=== PATIENT | male | born 1970 | race Caucasian/White ===

== ENCOUNTER → 2023-04-16 13:19 | Outpatient (CLI) | payer OTHER, SELFPAY ==
[2023-04-16 14:51] LABS: Add Manual Diff / Slide Review NO; Basophils Absolute Auto 100 /uL (0-100); Basophils Percent Auto 0.6 % (0-2); Eosinophils Absolute Auto 100 /uL (0-450); Hematocrit 44.8 % (41-53); Hemoglobin 15.4 g/dL (13.5-17.5); Lymphocytes Absolute Auto 2500 /uL (1100-4500); Lymphocytes Percent Auto 28.4 % (25-40); Mean Corpuscular HGB Conc 34.3 % (30-36); Mean Corpuscular Hemoglobin 34.1 PG (26-34); Mean Corpuscular Volume 99.4 fL (80-100); Monocytes Absolute Auto 600 /uL (0-900); Monocytes Percent Auto 6.6 % (3-14); Neutrophils Absolute Auto 5500 /uL (1500-7000); Neutrophils Percent Auto 63.4 % (50-75); Platelet Count 241 X10^3/uL (150-400); Red Cell Distribution Width 13.7 % (11.6-14.8); White Blood Cell Count 8.7 X10^3/uL (4.5-11.0)
[2023-04-16 15:57] LABS: Alanine Aminotransferase 22 IU/L (<50); Albumin Globulin Ratio 1.3 (1.0-2.8); Alkaline Phosphatase 58 U/L (38-126); Aspartate Aminotransferase 24 IU/L (17-59); BUN Creatinine Ratio 15.7 (6-22); Bilirubin Total 0.5 mg/dL (0.2-1.3); Blood Urea Nitrogen 13 mg/dL (9-20); Calcium 8.9 mg/dL (8.4-10.2); Carbon Dioxide 29 mmol/L (22-32); Chloride 109 mmol/L (98-107); Cholesterol 183 mg/dL (140-199); Estimated Glomerular Filt Rate > 60 mL/min (>60); Glucose 89 mg/dL (70-100); HDL Cholesterol 34 mg/dL (40-60); HEMOLYSIS < 15 (0-50); LDL Cholesterol Calculated 120 mg/dL (<100); Potassium 4.3 mmol/L (3.4-5.1); Sodium 142 mmol/L (137-145); Triglycerides 143 mg/dL (35-150)
[2023-04-16 16:50] LABS: HIV 1 & 2 Ab/Ag 4th Gen Combo NEGATIVE (NEGATIVE); Hep C Virus Ab w/Reflex Quant NEGATIVE s/c (NEGATIVE)
== END ==
PROVIDERS: PCP Family Medicine; Referring Provider Family Medicine; Visit Provider Family Medicine
DX: E87.8 Other disorders of electrolyte and fluid balance, not elsewhere classified (principal); Z13.9 Encounter for screening, unspecified; Z13.220 Encounter for screening for lipoid disorders; Z11.4 Encounter for screening for human immunodeficiency virus [HIV]; Z11.59 Encounter for screening for other viral diseases; Z13.0 Encounter for screening for diseases of the blood and blood-forming organs and certain disorders involving the immune mechanism
CPT/HCPCS: 36415; 80053; 80061; 85025; 86803; 87389

== ENCOUNTER 2023-05-06 09:57 | Day surgery (SDC) | payer OTHER, SELFPAY ==
[2023-05-04 12:35] VITALS: BMI 28.2
[2023-05-06] VITALS (11 sets, daily range): BP systolic 108–138; BP diastolic 62–78; PULSE 50–77; RESP 12–20; TEMP 36.3–36.7; O2SAT 93–100; BMI 26.4
[2023-05-06] MEDS: LACTATED RINGERS 1,000 ML 21 ML IV ×2 (11:09→13:14)
--- NOTE | 2023-05-06 11:28 | PM.PREOP ---
Pre-operative Note Interval Note History & Physical reviewed/Exam performed by Physician: Yes Changes to H&P: No
[2023-05-06] MEDS: CEFAZOLIN 2 GM/100 ML PREMIX 100 ML IV (12:06)
--- NOTE | 2023-05-06 12:20 | SUR.OPER ---
Supine on padded OR bed, head on pillow, bilateral arms padded and tucked at patients side, legs uncrossed, safety belt at thigh, tape over blanket over lower legs.
[2023-05-06] MEDS: BUPIVACAINE 0.25% (PF) VIAL 30 ML INJ (12:27)
--- NOTE | 2023-05-06 13:38 | PM.OP.1 ---
Operative Date/Time/Diagnoses Date of procedure: 05/06/23 Time of procedure: 13:38 Pre-op diagnosis: left inguinal hernia Post-op diagnosis: same Procedure & Clinicians Procedure: Laparoscopic repair of left inguinal hernia Same procedure as scheduled: Yes Indications: Symptomatic reducible left inguinal hernia Surgeon: Darian Torres Housekeeping Cleaner: He Franklin Anesthesia Type: General Operative Notes Findings: Large indirect defect containing sigmoid colon. No direct floor defect Specimen(s): none sent Estimated Blood Loss (mL): 100 Procedure in detail: The patient was brought to the operating room and placed supine on the table. Bilateral sequential compression devices were applied. General anesthesia was induced and they were intubated with an endotracheal tube. A zepeda cath was placed in sterile fashion. They received Ancef prior to skin incision. They were prepped and draped in sterile fashion. A time out was performed to ensure the correct patient, procedure and necessary equipment within the operating room. The skin was infiltrated with 0.25% bupivicaine. A 1 cm supra umbilical midline incision was made. The fascia was sharply incised and the abdomen entered traumatically. A 10mm balloon port was placed and pneumoperitoneum was established at 15mm Hg. Inspection of the abdomen demonstrated no evidence of injury upon entry. Two 5 mm ports were then placed under direct visualization in the right and left lower quadrant lateral to the rectus muscle. Previous right-sided repair was observed appeared to be in good order. On the left the sigmoid colon was within the indirect defect. Colon was reduced out of the defect. Starting on the left side the peritoneum 4 cm superior to the deep inguinal ring between the medial umbilical ligament and the anterior superior iliac spine was incised. The medial preperitoneal dissection was carried out into the space of Retzius bluntly, the bladder was swept inferiorly, the pubis and Andrzej's ligament were identified. Next attention was turned towards the lateral aspect of the peritoneal flap. The preperitoneal fat with the testicular vessels was carefully dissected off the inferior peritoneal flap. The cord was examined demonstrating a large redundant indirect sac which was skeltonized off the cord preserving the testicular vessels and the vas deferns. A large Bard 3D Max mesh was then placed into the abdomen and positioned such that the myopectineal orifice was completely covered with good overlap on all sides. The peritoneal flap was then repositioned back to its original position and a running V lock suture was used to close the peritoneum such that no bowel could herniate into the preperitoneal space. The area was examined for hemostasis. The 5mm trocars were removed under direct visualization and pneumoperitoneum was deflated through the umbilical trocar, The fascia at the umbilicus was closed with 0-Vicryl in figure of 8 fashion, skin closed with 4-0 Monocyl followed by Dermabond. The sponge and instrument count at the end of the case was correct. Both testicles were entirely within the scrotum at the end of the case. The patient emerged from anesthsia was extubated and transferred to recovery in stable condition. Complications: none Post-operative Condition: stable Disposition: same day surgery
[2023-05-06] MEDS: MEPERIDINE 50 MG/ML INJ 25 MG IV (14:02)
[2023-05-06] MEDS: ONDANSETRON 4 MG/2 ML INJ IV (14:03)
[2023-05-06] MEDS: OXYCODONE IR 5 MG TABLET PO ×2 (14:03→14:31)
[2023-05-06] MEDS: hydrOXYzine 50 MG/ML INJ 25 MG IM (14:05)
[2023-05-06] MEDS: ACETAMINOPHEN 325 MG TABLET 975 MG PO (14:21)
[2023-05-06] MEDS: fentaNYL 100 MCG/2 ML INJ IV (14:25)
--- NOTE | 2023-05-06 15:20 | SUR.PHASEI ---
Informed Dr Torres of scrotal swelling. No new orders.
== END 2023-05-06 15:17 | disposition home or self-care (01) ==
PROVIDERS: PCP Family Medicine; Referring Provider Surgery; Visit Provider Surgery
PROC: 0YQ64ZZ Repair Left Inguinal Region, Percutaneous Endoscopic Approach (ICD-10-PCS; CPT 49650; principal; 2023-05-06 11:45)
DX: K40.90 Unilateral inguinal hernia, without obstruction or gangrene, not specified as recurrent (principal)
CPT/HCPCS: 49650; 82962; J0330; J0690; J1885; J2175; J2250; J2405; J2704; J3010; J3410

== ENCOUNTER → 2023-05-13 14:55 | Outpatient (CLI) | payer OTHER, SELFPAY ==
[2023-05-13 15:23] LABS: Appearance Urine UA CLEAR; Bilirubin Urine UA 1+ (NEGATIVE); Color Urine UA YELLOW; Glucose Urine UA NEGATIVE (Negative); Ketones Urine UA 2+ (NEGATIVE); Leukocyte Esterase Urine UA NEGATIVE (NEGATIVE); Nitrite Urine UA NEGATIVE (Negative); Occult Blood Urine UA NEGATIVE (Negative); Protein Urine UA NEGATIVE (Negative); Specific Gravity Urine UA 1.025 (1.000-1.035); pH Urine UA 5.5 (4.5-8.0)
[2023-05-13 15:29] LABS: Ictotest Urine Negative (Negative)
[2023-05-13 15:30] LABS: Bacteria Urine Occasional (0-1); Culture Indicated Urine Cult Not Indicated; Mucus Urine 1+ (Negative); RBC Urine 0-1/HPF (0-5/HPF); Squamous Epithelial Cell Urine 0-1 /HPF (0-5/HPF); Urine Volume 10mL (spun); WBC Urine 0-1/HPF (0-5/HPF)
== END ==
PROVIDERS: PCP Family Medicine; Referring Provider Surgery; Visit Provider Surgery
DX: N99.89 Other postprocedural complications and disorders of genitourinary system (principal)
CPT/HCPCS: 81001

== ENCOUNTER 2023-06-16 06:42 | Day surgery (SDC) | payer OTHER, SELFPAY ==
[2023-06-16 07:10] VITALS: BP 105/62; PULSE 60; RESP 16; TEMP 36.6; O2SAT 98
[2023-06-16] MEDS: LACTATED RINGERS 1,000 ML 42 ML IV (07:20)
--- NOTE | 2023-06-16 07:46 | PM.HP.1 ---
History of Present Illness History of Present Illness Date Patient Seen: 06/16/23 Time Patient Seen: 07:46 Chief complaint: Screening Colonoscopy Narrative: 52-year-old male here for screening colonoscopy 1st time. No family history of intestinal malignancy. Occasional left-sided lower abdominal pain. [facility] Medical History Elevated cholesterol Decreased hearing Surgical History Anesthesia History of hernia repair (~1998) S/P right rotator cuff repair (~1996) Social History marital status: household members: spouse lives independently: Yes occupational status: employed Smoking Status: Current every day smoker Tobacco: How many years used: 38 alcohol intake: current substance use type: does not use Meds Home Medications and Allergies Home Medications Medication Instructions Recorded Confirmed Type bupropion HCl 150 mg tablet,12 hr 150 mg PO BID #60 ea 05/07/23 05/21/23 Rx sustained-release peg 3350-electrolytes 236 240 ml PO Q10M #4,000 mL 06/05/23 Rx gram-22.74 gram-6.74 gram-5.86 gram solution (Golytely) Allergies Allergy/AdvReac Type Severity Reaction Status Date / Time No Known Drug Allergies Allergy Verified 05/21/23 14:42 Exam Vital Signs (past 8 hours): - 06/16/23 07:10 Temperature 97.8 F Pulse Rate 60 Respiratory Rate 16 Blood Pressure 105/62 Pulse Oximetry 98 Oxygen Delivery Method Room Air Oxygen Delivery Method Room Air Narrative Exam Narrative: General adult man alert oriented no acute distress Chest nonlabored respiration Extremities warm well perfused Assessment & Plan Assessment & Plan narrative: The patient requires colorectal screening and colonoscopy is recommended. Technical details were discussed. Risks, benefits, alternatives explained. Risks including but not limited to myocardial infarction, aspiration, bleeding, pain, missed lesion, incomplete examination, need for further radiographic studies, intestinal injury, and need for major abdominal surgery were discussed. All questions were answered to their satisfaction, and they are in agreement with this plan.
--- NOTE | 2023-06-16 07:47 | PM.OP.COLON ---
Operative Date/Time/Diagnoses Date of procedure: 06/16/23 Time of procedure: 08:01 Pre-op diagnosis: Colorectal screening Procedure & Clinicians Study performed: Aborted colonoscopy Indications: 52-year-old male here for 1st time screening colonoscopy Surgeon: Darian Torres Procedure Notes Procedure in detail: The history and physical was performed/updated and the patient is ASA class is 2. The procedure was discussed in detail with the patient. Potential risks complications including infection, bleeding, missed diagnosis, perforation, need for surgery, and were explained. Their questions were answered and informed consent was obtained. Patient was brought to the procedure room and placed standard monitoring equipment. The patient's vital signs were monitored continuously throughout the entire procedure. Prior to starting time-out was performed. The patient was placed in the left lateral recumbent position. Procedural sedation was administered by anesthesia. Examination began with a thorough inspection of the perianal area there was no evidence of fissures, fistulae, external hemorrhoids or cutaneous malignancy. The colonoscopy scope was then placed into the anal canal and was advanced forward. Despite copious irrigation the quality of the prep remained quite poor and inadequate for safe and accurate performance of the exam. The procedure was aborted. Impression: Aborted colonoscopy Post-procedure Plan for aftercare: Re-attempt colonoscopy with alternative prep.
[2023-06-16 08:02] VITALS: BP 94/69; PULSE 72; RESP 12; TEMP 36.5; O2SAT 97
[2023-06-16 08:07] VITALS: BP 100/67; PULSE 69; RESP 14; O2SAT 96
[2023-06-16 08:12] VITALS: BP 109/71; PULSE 58; RESP 16; O2SAT 99
[2023-06-16 08:17] VITALS: BP 93/64; PULSE 67; RESP 16; TEMP 36.1; O2SAT 98
[2023-06-16 08:33] VITALS: BP 95/63; PULSE 55; RESP 16; O2SAT 99
--- NOTE | 2023-06-16 08:35 | SUR.PHASEII ---
Pt states he is ready to go home. Pt states he understands discharge instructions. Pt to be discharged with his .
== END 2023-06-16 08:38 | disposition home or self-care (01) ==
PROVIDERS: PCP Family Medicine; Referring Provider Surgery; Visit Provider Surgery
PROC: 0DJD8ZZ Inspection of Lower Intestinal Tract, Via Natural or Artificial Opening Endoscopic (ICD-10-PCS; CPT 45378; principal; 2023-06-16 07:45)
DX: Z12.11 Encounter for screening for malignant neoplasm of colon (principal); Z53.09 Procedure and treatment not carried out because of other contraindication
CPT/HCPCS: 45378; J2704

== ENCOUNTER → 2024-11-29 10:10 | Outpatient (CLI) | payer OTHER, SELFPAY ==
[2024-11-29 10:54] LABS: Hematocrit 44.8 % (41-53); Hemoglobin 15.4 g/dL (13.5-17.5); Mean Corpuscular HGB Conc 34.4 % (30-36); Mean Corpuscular Hemoglobin 33.8 PG (26-34); Mean Corpuscular Volume 98.3 fL (80-100); Platelet Count 297 X10^3/uL (150-400)
[2024-11-29 12:23] LABS: Alanine Aminotransferase 19 IU/L (<50); Albumin 4.3 g/dL (3.5-5.0); Albumin Globulin Ratio 1.4 (1.0-2.8); Alkaline Phosphatase 59 U/L (38-126); Blood Urea Nitrogen 11 mg/dL (9-20); Calcium 9.1 mg/dL (8.4-10.2); Carbon Dioxide 25 mmol/L (22-32); Chloride 106 mmol/L (98-107); Cholesterol 201 mg/dL (140-199); Estimated Glomerular Filt Rate > 60 mL/min (>60); Globulin 3.0 g/dL (1.7-4.1); Glucose 101 mg/dL (70-99); HDL Cholesterol 43 mg/dL (40-60); HEMOLYSIS 23 (0-50); Potassium 4.3 mmol/L (3.4-5.1); Sodium 139 mmol/L (137-145); Total Protein 7.3 g/dL (6.3-8.2); Triglycerides 96 mg/dL (35-150)
[2024-11-29 12:48] LABS: TSH w/ Reflex to FT4 1.58 uIU/mL (0.47-4.68)
[2024-11-29 12:55] LABS: Hemoglobin A1C% w Est Avg Glu 5.7 % (4.0-6.0)
== END ==
PROVIDERS: PCP Family Medicine; Referring Provider Family Medicine; Visit Provider Family Medicine
DX: E78.5 Hyperlipidemia, unspecified (principal); F17.200 Nicotine dependence, unspecified, uncomplicated; Z79.899 Other long term (current) drug therapy; Z13.1 Encounter for screening for diabetes mellitus; Z12.5 Encounter for screening for malignant neoplasm of prostate; Z13.29 Encounter for screening for other suspected endocrine disorder
CPT/HCPCS: 36415; 80053; 80061; 83036; 84443; 85027; G0103

== ENCOUNTER → 2024-12-16 14:51 | Outpatient (CLI) | payer OTHER, SELFPAY ==
--- NOTE | 2024-12-16 14:52 | DI.CT.S_ITS ---
PROCEDURE: CT LUNG LOW DOSE SCREENING
== END ==
LOC: CT 14:52
PROVIDERS: PCP Family Medicine; Referring Provider Family Medicine; Visit Provider Family Medicine
DX: Z12.2 Encounter for screening for malignant neoplasm of respiratory organs (principal); F17.210 Nicotine dependence, cigarettes, uncomplicated; I25.10 Atherosclerotic heart disease of native coronary artery without angina pectoris
CPT/HCPCS: 71271

== ENCOUNTER 2025-01-30 11:45 | Day surgery (SDC) | payer OTHER, SELFPAY ==
[2025-01-25 08:35] VITALS: BMI 27.8
--- NOTE | 2025-01-30 | PATH_ITS ---
[facility] Accession Number: [id number] No. of containers..02 Tissue . 01 Material submitted: . PART A: colon - CECUM POLYP PART B: colon - SIGMOID POLYP . 01 Diagnosis: Part A: CECUM POLYP: Colonic mucosa with benign lymphoid aggregate. No neoplasm identified. . Specimen Comments: Additional step sections were examined. . Part B: SIGMOID POLYP: Hyperplastic polyp. [facility] 02/06/2025 1205 Local . 01 Electronically signed: . Jcaob Cason MD, Pathologist NPI- [id number] . 01 Gross description: . A. Received in formalin with two patient identifiers, and cecum polyp is one, 0.3 cm fam tissue fragment, entirely submitted in A1. . B. Received in formalin with two patient identifiers, and sigmoid polyp per clinician, are two 0.5-0.6 cm fam tissue fragments, entirely submitted in B1. ([id number]) /MRV 02/06/2025 1205 Local . 01 Pathologist provided ICD-10: K63.5, K63.89 . 01 CPT . 586097, [id number] Specimen Comment: A courtesy copy of this report has been sent to [phone] Performed at: [address] [id number] MD Jacob Cason MD Phone: [phone]
[2025-01-30 12:33] VITALS: BP 114/75; PULSE 59; RESP 18; TEMP 36.2; O2SAT 95
[2025-01-30] MEDS: LACTATED RINGERS 1,000 ML 42 ML IV (12:33)
--- NOTE | 2025-01-30 12:59 | P.HP_ITS ---
History of Present Illness History of Present Illness Date Patient Seen: 01/30/25 Time Patient Seen: 12:59 Chief complaint: Screening Colonoscopy Narrative: James is a 54-year-old man here for colonoscopy. He had an attempted colonoscopy last year in June but it his prep was inadequate. No known family history of colon cancer. [facility] Medical History (Updated 01/30/25 @ 13:01 by Roddy Siu MD) Left inguinal hernia Elevated cholesterol Decreased hearing Surgical History (Updated 01/25/25 @ 08:44 by Lisa West RN) Hx of colonoscopy (06/16/23) History of right inguinal hernia repair (05/06/23) History of left inguinal hernia repair (~1998) Anesthesia S/P right rotator cuff repair (~1996) Social History marital status: household members: spouse lives independently: Yes occupational status: employed Smoking Status: Current every day smoker Tobacco: How many years used: 38 alcohol intake: current substance use type: does not use Meds Home Medications and Allergies Home Medications ?Medication ?Instructions ?Recorded ?Confirmed ?Type bupropion HCl 150 mg tablet,12 hr 150 mg PO BID #180 e a 11/29/24 11/29/24 Rx sustained-release sodium,potassium,mag sulfates 17.5 See Rx Instructions PO .COMPLEX 12/15/24 Rx gram-3.13 gram-1.6 gram oral soln #354 mL (Suprep Bowel Prep Kit) Allergies Allergy/AdvReac Type Severity Reaction Status Date / Time No Known Drug Allergies Allergy Verified 11/29/24 09:27 Exam Vital Signs (past 8 hours): - 01/30/25 12:33 Temperature 97.2 F L Pulse Rate 59 L Respiratory Rate 18 Blood Pressure 114/75 Pulse Oximetry 95 Oxygen Delivery Method Room Air Oxygen Delivery Method Room Air Const General: healthy appearing Assessment & Plan Assessment and plan (1) Colon cancer screening: Status: Acute Plan Colonoscopy Time-Based Coding :: [TOTAL MINUTES] spent with patient and on the chart (including review of chart, obtaining history, exam, reviewing outside data, placing orders, documenting exam and treatment plan, and counseling patient) on [DATE]. PROFEE Director Strategy Document charge(s): No
--- NOTE | 2025-01-30 13:21 | PM.OP.COLON ---
Operative Date/Time/Diagnoses Date of procedure: 01/30/25 Time of procedure: 13:21 Pre-op diagnosis: Colon cancer screening Post-op diagnosis: same Procedure & Clinicians Study performed: Colonoscopy Same procedure(s) as scheduled: Yes Surgeon: Roddy Siu Anesthesia Type: MAC +/- Procedure Notes Procedure in detail: Surgeon: Roddy Siu MD Anesthesia: Cathie Swan CRNA Procedure: The patient was brought to the endoscopy suite, placed in left lateral decubitus position. The patient was connected to monitoring devices. A time-out was performed. Sedation was administered. Once the patient was adequately sedated, a digital rectal exam was performed and was normal. The scope was then inserted and advanced to the cecum where the appendiceal orifice was identified and photographed. The scope was then slowly withdrawn over greater than 6 minutes. The mucosa was thoroughly inspected. There was a small polyp in the cecum adjacent to the appendiceal orifice removed with a cold snare. There was a 7 mm polyp in the distal sigmoid colon removed with a cold snare. The scope was retroflexed in the rectum. No other abnormalities were seen. The scope was straightened and removed. The patient was awakened and brought to recovery. Scope withdrawal time: 8 minutes Sedation time: 11 minutes Findings: Small polyp in the cecum and 7 mm polyp in the sigmoid colon Estimated Blood Loss: 5 Complications: none Post-procedure Disposition: PACU
[2025-01-30 13:26] VITALS: BP 101/65; PULSE 55; RESP 22; TEMP 36.8; O2SAT 95
[2025-01-30 13:30] VITALS: BP 101/65; PULSE 54; RESP 23; O2SAT 97
[2025-01-30 13:36] VITALS: BP 91/63; PULSE 65; RESP 29; O2SAT 97
[2025-01-30 13:43] VITALS: BP 104/75; PULSE 57; RESP 22; TEMP 36.6; O2SAT 98
== END 2025-01-30 14:06 | disposition home or self-care (01) ==
PROVIDERS: PCP Family Medicine; Referring Provider Family Medicine; Visit Provider Surgery
PROC: 0DJD8ZZ Inspection of Lower Intestinal Tract, Via Natural or Artificial Opening Endoscopic (ICD-10-PCS; CPT 45378; principal; 2025-01-30 13:30)
DX: Z12.11 Encounter for screening for malignant neoplasm of colon (principal); F17.210 Nicotine dependence, cigarettes, uncomplicated; K63.5 Polyp of colon
CPT/HCPCS: 45385; J2704; J7120